=== PATIENT | female | born 1935 | race Caucasian/White ===

== ENCOUNTER → 2016-10-28 | Outpatient (CLI) | payer MEDICARE ==
[~2016-10-28] MED LIST: ALBU8.5H4 IH; ASPI-504 PO; BACI28.32 EXT; CALC500T55 PO; CYCL1DRO OU; CYCL1DRO2 OP; FOLI0.8T2 PO; HYDR-3702 PO; HYDR-3754 PO; HYDR-3811 PO; LATA2.5D5 OU; LVT.025T PO; METO25TA60 PO; MTP50T PO; NITR0.4T7 SL; OXYC1TAB6 PO; SERT50TA PO; SEVE800T7 PO; TRAZ-28 PO; TRAZ150T72 PO
--- NOTE | 2016-10-28 16:45 | Diagnostic Imaging Report ---
INDICATION: Patient is on dialysis. Patient has had a stent placed for a dialysis fistula. Patient currently has pain. FINDINGS: There is external plate along the distal radius. Bone screws present appearing in good position. No evidence of loosening of the bone screws. No hardware fractures. Diffuse degenerative changes are noted of the wrist with no acute fractures or osteonecrosis. 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 The distal portion of the expandable stent is noted in the soft tissues with multiple surgical clips. IMPRESSION: Postsurgical change with old healed fractures. Moderate degenerative change with no acute abnormalities. Dictated by: Dictated on workstation # [id number]
== END ==
LOC: RAD 15:47
PROVIDERS: ATTEND Family Medicine
DX: M25.532 Pain in left wrist (principal); Z87.81 Personal history of (healed) traumatic fracture
CPT/HCPCS: 73110

== ENCOUNTER → 2016-11-05 | Outpatient (CLI) | payer MEDICARE ==
--- NOTE | 2016-11-05 16:57 | Diagnostic Imaging Report ---
INDICATION: Left hip pain. EXAMINATION: Two views of the left hip were obtained. FINDINGS: Postop changes from left femoral head arthroplasty. There is a long femoral stem. There are scars in the proximal shaft from previous hardware. There is no acute fracture or evidence of loosening. There is no dislocation. There is vascular calcification present. 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 IMPRESSION: Postop changes from left hip revision with hemiarthroplasty. There is decreased bone density in the trochanteric region of the left hip which raises concern for possibility of osteomyelitis. Dictated by: Dictated on workstation # [id number]
== END ==
LOC: RAD 14:50
PROVIDERS: ATTEND Family Medicine
DX: M25.552 Pain in left hip (principal); Z98.890 Other specified postprocedural states
CPT/HCPCS: 73502

== ENCOUNTER → 2016-11-08 | Outpatient (CLI) | payer MEDICARE ==
[2016-11-08 11:06] LABS: BASOPHILS % (AUTO) 0 % (0-2); EOSINOPHILS # (AUTO) 0.2 10^3uL; EOSINOPHILS % (AUTO) 2 % (0-4); LYMPHOCYTES # (AUTO) 0.8 X10^3; MEAN CORPUSCULAR HEMOGLOBIN 27.7 PG (26.0-34.0); MEAN CORPUSCULAR VOLUME 91 FL (80-100); MEAN PLATELET VOLUME 10.2 FL (6.0-9.5); MONOCYTES # (AUTO) 0.5 X10^3; MONOCYTES % (AUTO) 7 % (3-11); NEUTROPHILS # (AUTO) 5.4 X10^3; NEUTROPHILS % (AUTO) 79 % (51-67); PLATELET COUNT 223 10^3uL (150-450); WHITE BLOOD COUNT 6.83 10^3uL (4.0-11.0)
[2016-11-08 11:10] LABS: MEAN CORPUSCULAR HGB CONC 30.4 g/dL (31.0-37.0)
[2016-11-08 11:46] LABS: ERYTHROCYTE SEDIMENTATION RT* 19 mm/hr (0-23)
== END ==
LOC: LAB 10:50
PROVIDERS: ATTEND Family Medicine
DX: M25.552 Pain in left hip (principal); R93.7 Abnormal findings on diagnostic imaging of other parts of musculoskeletal system
CPT/HCPCS: 36415; 85025; 85652; 86140

== ENCOUNTER 2016-11-20 14:20 | Emergency (ER) | payer MEDICARE ==
[~2016-11-20] VITALS: Ht 165.1 cm; Wt 67.0 kg
--- OUTSIDE RECORDS SUMMARY | 2016-11-20 14:24 | XMS REPORT | Continuity of Care Document ---
Author Author [facility] Organization [facility] Address Unknown Phone Unavailable Care Team Providers Care Flyer Builder Name Role Phone Unverified, Unverified PCP Unavailable Source Comments Some departments are not documenting in the electronic medical record. If you do not see the information that you expected, contact Release of Information in the Health Information Management department at [phone] for further assistance in locating additional records.[facility] Active Allergies and Adverse Reactions Not on File Current Medications Not on file Active Problems Not on file Social History Tobacco Use Types Packs/Day Years Used Date Never Assessed Plan of Care Health Maintenance Due Date Last Done Comments Physical (Comprehensive) 1942 Exam Pertussis Vaccine 1947 Tetanus Vaccine 1953 Shingles Vaccine 1996 Osteoporosis Screening 2001 Prevnar/Pneumovax (#1) 2001 Influenza Vaccine 03/27/2017 Results from Last 3 Months Not on file
[2016-11-20] MEDS ORDERED: HYDROmorphone 1 MG/ML (DILAUDID) SYRINGE IM ONE (14:35)
--- NOTE | 2016-11-20 15:43 | NUR ---
pt requests a mouth swab
--- NOTE | 2016-11-20 15:52 | Diagnostic Imaging Report ---
INDICATION: Fall with left thigh pain. DISCUSSION: Four views of the left femur were obtained, comparison with left hip from 04/28/2016. 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 The distal aspect of the femoral component does abut the anterior lateral cortex with mild periosteal reaction present. There is no definite osteolysis identified to suggest hardware loosening. No acute fracture is otherwise identified. No dislocation. Vascular calcifications are present. No unexpected radiopaque foreign body. Posttraumatic changes of the greater trochanter appear stable. IMPRESSION: 1. Total left hip arthroplasty is now present. The distal aspect of the femoral component does abut and deform the anterior lateral cortex with mild overlying periosteal reaction. There is no surrounding osteolysis identified to suggest definite hardware loosening. No acute fracture identified. Recommend comparison with outside films if available. Dictated by: Dictated on workstation # [id number]
--- NOTE | 2016-11-20 17:03 | NUR ---
ems reports 2 ambulances out, waiting for them to come back from [facility] before transport, okd by er md
[2016-11-20 17:47] VITALS: BP 124/64
== END 2016-11-20 17:51 | disposition short-term general hospital (02) ==
LOC: EDUNIT# 14:20 → ED 14:21
DX: S83.92XA Sprain of unspecified site of left knee, initial encounter (principal); W01.10XA Fall on same level from slipping, tripping and stumbling with subsequent striking against unspecified object, initial encounter; Y92.009 Unspecified place in unspecified non-institutional (private) residence as the place of occurrence of the external cause; Z96.652 Presence of left artificial knee joint
CPT/HCPCS: 73552; 96372; 99283; J1170

== ENCOUNTER → 2016-11-20 | Outpatient (CLI) | payer MEDICARE | LOC: EMS 14:20 | DX: M79.605 Pain in left leg (principal); N18.9 Chronic kidney disease, unspecified; Z99.2 Dependence on renal dialysis ==